=== PATIENT | female | born 1980 | race Caucasian/White ===

== ENCOUNTER 2018-05-16 18:22 | Emergency (ER) | payer BC ==
[2018-05-16] MEDS ORDERED: Tetracaine HCl/PF 0.5% 4 ML Bottle EYEBOTH ONE (18:57)
[2018-05-16] MEDS ORDERED: Fluorescein 1 MG Ophth Strip EYEBOTH ONE (18:57)
--- NOTE | 2018-05-16 19:00 | EDM.PDOC ---
ED HPI GENERAL MEDICAL PROBLEM - General Chief Complaint: Eye Problems Stated Complaint: EYE PROBLEM [id number] Time Seen by Provider: 05/16/18 18:58 Source of Information: Reports: Patient History Limitations: Reports: No Limitations - History of Present Illness INITIAL COMMENTS - FREE TEXT/NARRATIVE: woke up with problem, did remove contact lens but think might have scratched her eyes. now feels worse Left Eye Pain Score (Numeric/FACES): 2 - Related Data Allergies Allergy/AdvReac Type Severity Reaction Status Date / Time No Known Allergies Allergy Verified 05/16/18 18:57 Home Meds: Home Meds . [No Known Home Meds] 05/16/18 [History] Past Medical History HEENT History: Reports: Impaired Vision Other HEENT History: Wears contact lenses Social & Family History - Tobacco Use Smoking Status *Q: Current Some Day Smoker Years of Tobacco use: 20 Packs/Tins Daily: 1 - Caffeine Use Caffeine Use: Reports: Coffee, Soda - Alcohol Use Date of Last Drink: 05/16/18 - Recreational Drug Use Recreational Drug Use: No ED ROS GENERAL - Review of Systems Review Of Systems: ROS reveals no pertinent complaints other than HPI. ED EXAM GENERAL W FULL EYE - Physical Exam Exam: See Below Exam Limited By: No Limitations General Appearance: Alert, WD/WN, Mild Distress, Other (discomfort) Visual Acuity (R) 20/: 20 Visual Acuity (L) 20/: 20 With Correction: Yes Eyelids: Left: Edema (minimal) Conjunctiva & Sclera: Left: Injected Cornea Exam: Left: Corneal Abrasion (lateral), Examined with Flourescein Extraocular Movements: Bilateral: Intact Pupillary Size: Bilateral: 4 mm Pupillary Reaction: Bilateral: Brisk Anterior Chamber: Bilateral: Normal Appearance Ears: Hearing Grossly Normal Throat/Mouth: Normal Voice, No Airway Compromise Head: Atraumatic Neck: Non-Tender, Full Range of Motion Respiratory/Chest: No Respiratory Distress Cardiovascular: Regular Rate, Rhythm GI/Abdominal: Soft, Non-Tender Neurological: Alert, Oriented, Normal Cognition, Normal Gait, No Motor/Sensory Deficits Psychiatric: Tearful Skin Exam: Warm, Dry, Normal Color Lymphatic: No Adenopathy Course - Vital Signs Last Recorded V/S: Last Vital Signs Temp 37.2 C 05/16/18 18:36 Pulse 58 L 05/16/18 18:36 Resp 16 05/16/18 18:36 BP 140/71 05/16/18 18:36 Pulse Ox 100 05/16/18 18:36 - Orders/Labs/Meds Meds: Medications Discontinued Medications Generic Name Dose Route Start Last Admin Trade Name Perez PRN Reason Stop Dose Admin Fluorescein Sodium 2 mg 05/16/18 18:57 05/16/18 19:09 Ful-Gloria EYEBOTH 05/16/18 18:58 2 mg ONETIME ONE Administration Gentamicin Sulfate 1 ml 05/16/18 21:00 05/16/18 19:27 Garamycin 0.3% Ophth Soln EYELF 2 drop TID ABELARDO Administration Tetracaine HCl 5 ml 05/16/18 18:57 05/16/18 19:09 Tetracaine 0.5% Steri-Unit Constance EYEBOTH 05/16/18 18:58 1 ml ASDIRECTED ONE Administration Departure - Departure Time of Disposition: 19:35 Disposition: Home, Self-Care 01 Condition: Good Clinical Impression: Corneal abrasion Qualifiers: Encounter type: initial encounter Laterality: left Qualified Code(s): S05.02XA - Injury of conjunctiva and corneal abrasion without foreign body, left eye, initial encounter - Discharge Information Instructions: Corneal Abrasion, [id number] Referrals: PCP,None [Primary Care Provider] - Forms: ED Department Discharge Additional Instructions: 1) don't wear contact lens for 10 days 2) follow up with eye doctor when get home 3) recheck if there is any change or concern 4) wear eye patch tonight and remove tomorrow and use eye drops given
[2018-05-16] MEDS ORDERED: Gentamicin 0.3% Ophth Soln 5 ML Bottle EYELF SCH (21:00)
== END 2018-05-16 19:36 | disposition home or self-care (01) ==
LOC: DL.ED 18:22
DX: S05.02XA Injury of conjunctiva and corneal abrasion without foreign body, left eye, initial encounter (principal); F17.210 Nicotine dependence, cigarettes, uncomplicated; W26.8XXA Contact with other sharp object(s), not elsewhere classified, initial encounter
CPT/HCPCS: 99283; A9270